=== PATIENT | female | born 1955 | race Caucasian/White ===

== ENCOUNTER 2017-04-19 18:26 | Emergency (ER) | payer SELFPAY ==
[~2017-04-19] VITALS: Ht 162.6 cm; Wt 102.3 kg
[2017-04-19 18:33] VITALS: Ht 162.6 cm; Wt 102.3 kg
[2017-04-19] MEDS ORDERED: ACETAMINOPHEN 325 MG TAB PO STA (18:43)
[2017-04-19] MEDS ORDERED: ALBUT/IPRATROP 3MG/0.5MG NEB 3 ML VIAL INH STA (18:43)
--- NOTE | 2017-04-19 18:49 | EMERGENCY ROOM VISIT NOTE ---
History Report prepared by Ruben: Casey Duque Under the Supervision of: Dr. Kenzie Mccloud M.D. First contact with patient: 18:41 Chief Complaint: FLU LIKE SX Stated Complaint: FLU History of Present Illness The patient is a 61 year old female who presents to the Emergency Room with complaints of persistent flu-like symptoms that started 2 to 3 weeks ago. She says that she has been trying to deal with her illness on her own, but she does not want to deal with it anymore. The patient states that her daughter had pneumonia recently. The patient says that she has been tired, with difficulty breathing. She adds that she has had an intermittently productive cough, and the left side of her abdomen hurts from coughing. The patient adds that she has had a pounding headache, in addition to intermittent fevers. She notes that she has been wheezing. The patient is a smoker, and has smoked up to a pack per day. She says that she has been taking Ibuprofen for her symptoms, but has not taken any medications today. Source of History: patient Onset: 2 to 3 weeks ago Position: other (global - flu-like symptoms) Quality: other (pt is a smoker) Timing: other (persistent) Associated Symptoms: + fevers, + headache, + cough, + SOB, + abdominal pain (left), + fatigue Note: Associated symptoms: Wheezing. Review of Systems See HPI for pertinent positives & negatives. A total of 10 systems reviewed and were otherwise negative. Past Medical & Surgical Surgical Problems: (1) Hx of appendectomy Family History Cancer Gallbladder disease Hypertension Kidney disease Social History Smoking Status: Current Every Day Smoker Marital Status: Housing Status: lives with family Occupation Status: unemployed Current/Historical Medications Scheduled Levofloxacin (Levaquin), 750 MG PO DAILY Prednisone (Prednisone), 10 MG PO DIRECTED Allergies Coded Allergies: Penicillins (Unverified Allergy, Unknown, UKN, 04/19/17) Sulfa Drugs (Unverified Allergy, Unknown, HIVES, 04/19/17) Physical Exam Vital Signs Date Time Temp Pulse Resp B/P (MAP) Pulse Ox O2 Delivery O2 Flow Rate FiO2 04/19/17 21:54 36.7 84 18 121/85 93 Room Air 04/19/17 21:00 37.3 94 18 104/86 90 Room Air 04/19/17 20:01 38.3 113 18 111/72 93 Room Air 04/19/17 19:11 113 04/19/17 18:33 37.3 116 20 137/81 94 Room Air Physical Exam Vital signs reviewed. General: Obese, chronically ill-appearing 61 year old female, in no significant distress. HEENT: No scleral icterus, PERRLA, neck supple. Atraumatic. Cardiovascular: Regular rate and rhythm, no extra sounds. Pulmonary: Wheezing to lower lung cormier bilaterally, some wheezing appreciated bilaterally. Abdomen: Soft, nontender, nondistended, positive bowel sounds. Musculoskeletal: Atraumatic, no peripheral edema. Neurologic: Patient awake alert and oriented x 3 Skin: Warm, dry, no rash Medical Decision & Procedures ER Provider Diagnostic Interpretation: X-ray results as stated below per interpretation by me and the radiologist: SINGLE VIEW CHEST CLINICAL HISTORY: Cough and fever. FINDINGS: An AP, portable, upright chest radiograph is compared to study dated 04/15/2010. The examination is degraded by portable technique and patient rotation. The cardiomediastinal silhouette is unremarkable noting uncoiling of the thoracic aorta. Chronic interstitial thickening is similar to previous. There is no airspace consolidation or large pleural effusion. No pneumothorax is seen. The skeletal structures are osteopenic. The bony thorax is grossly intact. Degenerative change is seen throughout the thoracic spine. IMPRESSION: No acute cardiopulmonary abnormality. Electronically signed by: Toni Owens M.D. 04/19/2017 7:15 PM Dictated Date/Time: 04/19/2017 7:14 PM Laboratory Results 04/19/17 19:11 Red Blood Count 4.36, Mean Corpuscular Volume 97.2, Mean Corpuscular Hemoglobin 33.5, Mean Corpuscular Hemoglobin Concent 34.4, Mean Platelet Volume 9.7, Neutrophils (%) (Auto) 76.3, Lymphocytes (%) (Auto) 11.7, Monocytes (%) (Auto) 11.2, Eosinophils (%) (Auto) 0.3, Basophils (%) (Auto) 0.2, Neutrophils # (Auto ) 11.59, Lymphocytes # (Auto) 1.77, Monocytes # (Auto) 1.70, Eosinophils # (Auto ) 0.04, Basophils # (Auto) 0.03 04/19/17 19:11 Test 04/19/17 19:11 04/19/17 19:21 White Blood Count 15.17 K/uL (4.8-10.8) Red Blood Count 4.36 M/uL (4.2-5.4) Hemoglobin 14.6 g/dL (12.0-16.0) Hematocrit 42.4 % (37-47) Mean Corpuscular Volume 97.2 fL (80-100) Mean Corpuscular Hemoglobin 33.5 pg (25-34) Mean Corpuscular Hemoglobin Concent 34.4 g/dl (32-36) Platelet Count 415 K/uL (130-400) Mean Platelet Volume 9.7 fL (7.4-10.4) Neutrophils (%) (Auto) 76.3 % Lymphocytes (%) (Auto) 11.7 % Monocytes (%) (Auto) 11.2 % Eosinophils (%) (Auto) 0.3 % Basophils (%) (Auto) 0.2 % Neutrophils # (Auto) 11.59 K/uL (1.4-6.5) Lymphocytes # (Auto) 1.77 K/uL (1.2-3.4) Monocytes # (Auto) 1.70 K/uL (0.11-0.59) Eosinophils # (Auto) 0.04 K/uL (0-0.5) Basophils # (Auto) 0.03 K/uL (0-0.2) RDW Standard Deviation 45.6 fL (36.4-46.3) RDW Coefficient of Variation 12.9 % (11.5-14.5) Immature Granulocyte % (Auto) 0.3 % Immature Granulocyte # (Auto) 0.04 K/uL (0.00-0.02) Anion Gap 8.0 mmol/L (3-11) Est Creatinine Clear Calc Drug Dose 59.3 ml/min Estimated GFR () 59.9 Estimated GFR (Non- 51.7 BUN/Creatinine Ratio 10.2 (10-20) Calcium Level 9.0 mg/dl (8.5-10.1) Total Bilirubin 0.6 mg/dl (0.2-1) Direct Bilirubin 0.1 mg/dl (0-0.2) Aspartate Amino Transf (AST/SGOT) 24 U/L (15-37) Alanine Aminotransferase (ALT/SGPT) 29 U/L (12-78) Alkaline Phosphatase 88 U/L (45-117) Total Protein 7.7 gm/dl (6.4-8.2) Albumin 3.2 gm/dl (3.4-5.0) Influenza Type A Antigen Neg for Influ A (NEG) Influenza Type B Antigen Neg for Influ B (NEG) Bedside Troponin I < 0.030 ng/ml (0-0.045) Laboratory results per my review. Medications Administered Medications (Trade) Dose Ordered Sig/Naty Route Start Time Stop Time Status Last Admin Dose Admin Albuterol/ Ipratropium (Duoneb) 3 ml NOW STAT INH 04/19/17 18:43 04/19/17 18:45 DC 04/19/17 19:11 3 ML Acetaminophen (Tylenol Tab) 650 mg NOW STAT PO 04/19/17 18:43 04/19/17 18:45 DC 04/19/17 19:11 650 MG Ondansetron HCl (Zofran Inj) 4 mg NOW STAT IV 04/19/17 20:47 04/19/17 20:48 DC 04/19/17 20:47 4 MG Levofloxacin (Levaquin Tab) 750 mg NOW STAT PO 04/19/17 21:31 04/19/17 21:34 DC 04/19/17 21:52 750 MG Prednisone (PredniSONE TAB) 40 mg NOW STAT PO 04/19/17 21:31 04/19/17 21:34 DC 04/19/17 21:52 40 MG Albuterol (Ventolin Hfa Inhaler) 2 puffs NOW STAT INH 04/19/17 21:31 04/19/17 21:34 DC 04/19/17 21:52 2 PUFFS ECG Per My Interpretation Indication: SOB/dyspnea Rate (beats per minute): 118 Rhythm: sinus tachycardia Findings: no acute ischemic change, no ectopy, other (Nonspecific ST change in the anterolateral leads, QTC 440) ED Course 1840: Past medical records reviewed. The patient was evaluated in room A3. A complete history and physical examination was performed. 1842: Ordered Tylenol Tab 650 mg PO, Duoneb 3 ml INH. 2046: Ordered Zofran Inj 4 mg IV. 2130: Ordered Ventolin Hfa Inhaler 2 puffs INH, Prednisone Tab 40 mg PO, Levaquin Tab 750 mg PO. 2154: Upon reevaluation, the patient appeared to be resting comfortably. I recommended follow-up with her primary care physician, and she stated that she does not have money or trust doctors. I discussed findings with her. She was discharged home. Medical Decision Differential diagnosis: Etiologies such as infections, reactive airway disease, pneumonia, pneumothorax , COPD, CHF, cardiac ischemia, pulmonary embolism, musculoskeletal, gastrointestinal, as well as others were entertained. This pt was evaluated and appeared to be in no distress. IV access was obtained and lab was drawn. A duoneb treatment was given and tylenol for fever. Influenza swab is negative. CXR is clear. Given fever and wheezing along with pt's h/o smoking, she is likely suffering a bronchitis/early PNA. Pt was medicated with Levaquin 750 mg po and d/c with 6 more days. Pt was also placed on a prednisone taper and given an albuterol inhaler. Pt was strongly encouraged to establish with PCP, however pt became agitated and replied that she doesn't trust doctors. She was encouraged to return to the ED for worsening of symptoms or any medical concerns. Medication Reconcilliation Current Medication List: was personally reviewed by me Blood Pressure Screening Patient's blood pressure: Normal blood pressure Impression Primary Impression: Bronchitis Additional Impressions: Fever Tobacco dependence Scribe Attestation The scribe's documentation has been prepared under my direction and personally reviewed by me in its entirety. I confirm that the note above accurately reflects all work, treatment, procedures, and medical decision making performed by me. Departure Information Dispostion Home / Self-Care Prescriptions Prednisone (Prednisone) 10 Mg Tab 10 MG PO DIRECTED, #31 TAB 40 mg daily for 4 days, 30 mg daily for 3 days, 20 mg daily for 2 days, 10 mg daily for 2 days Prov: Kenzie Mccloud M.D. 04/19/17 Levofloxacin (Levaquin) 750 Mg Tab 750 MG PO DAILY for 6 Days, #6 TAB Prov: Kenzie Mccloud M.D. 04/19/17 Referrals No Doctor, Assigned (PCP) Forms HOME CARE DOCUMENTATION FORM, IMPORTANT VISIT INFORMATION Patient Instructions My [facility] Additional Instructions Diagnosis: Fever, bronchitis, tobacco dependency Please stop smoking. Levaquin 750 mg daily for the next 6 days, start tomorrow. Prednisone 40 mg daily for 4 days, 30 mg daily for 3 days, 20 mg daily for 2 days, 10 mg daily for 2 days. Albuterol 2 puffs every 4 hours as needed for wheezing or cough. Tylenol 650 mg every 6 hours as needed for fever. Return to the emergency department for worsening of symptoms or any medical concerns. Problem Qualifiers
--- NOTE | 2017-04-19 19:17 | DIAGNOSTIC IMAGING REPORT ---
SINGLE VIEW CHEST CLINICAL HISTORY: Cough and fever. FINDINGS: An AP, portable, upright chest radiograph is compared to study dated 04/15/2010. The examination is degraded by portable technique and patient rotation. The cardiomediastinal silhouette is unremarkable noting uncoiling of the thoracic aorta. Chronic interstitial thickening is similar to previous. There is no airspace consolidation or large pleural effusion. No pneumothorax is seen. The skeletal structures are osteopenic. The bony thorax is grossly intact. Degenerative change is seen throughout the thoracic spine. IMPRESSION: No acute cardiopulmonary abnormality. Electronically signed by: Toni Owens M.D. 04/19/2017 7:15 PM Dictated Date/Time: 04/19/2017 7:14 PM
[2017-04-19 19:43] LABS: BASO % 0.2 %; BASO ABS # 0.03 K/uL (0-0.2); EOS % 0.3 %; EOS ABS # 0.04 K/uL (0-0.5); HEMATOCRIT 42.4 % (37-47); HEMOGLOBIN 14.6 g/dL (12.0-16.0); IG# 0.04 K/uL (0.00-0.02); LYMPH % 11.7 %; LYMPH ABS # 1.77 K/uL (1.2-3.4); MEAN CELL VOLUME 97.2 fL (80-100); MEAN CORPUSCULAR HEMOGLOBIN 33.5 pg (25-34); MEAN CORPUSCULAR HGB CONC 34.4 g/dl (32-36); MEAN PLATELET VOLUME 9.7 fL (7.4-10.4); MONO % 11.2 %; NEUT % 76.3 %; NEUT ABS # 11.59 K/uL (1.4-6.5); PLATELET COUNT 415 K/uL (130-400); RED CELL DISTRIBUTION WIDTH CV 12.9 % (11.5-14.5); RED CELL DISTRIBUTION WIDTH SD 45.6 fL (36.4-46.3); WHITE BLOOD COUNT 15.17 K/uL (4.8-10.8)
[2017-04-19 20:10] LABS: ALBUMIN 3.2 gm/dl (3.4-5.0); CREATININE 1.13 mg/dl (0.60-1.20); POTASSIUM 3.5 mmol/L (3.5-5.1)
[2017-04-19 20:13] LABS: TOTAL PROTEIN 7.7 gm/dl (6.4-8.2)
[2017-04-19 20:43] LABS: INFLUENZA B ANTIGEN Neg for Influ B (NEG)
[2017-04-19] MEDS ORDERED: ONDANSETRON INJ 2 MG/ML 2 ML VIAL IV STA (20:47)
[2017-04-19] MEDS ORDERED: LEVOFLOXACIN 750 MG TAB PO STA (21:31)
[2017-04-19] MEDS ORDERED: ALBUTEROL HFA 8 GM INHALER INH STA (21:31)
[2017-04-19 21:54] VITALS: BP 121/85; PULSE 84; TEMP 36.7; O2SAT 93
[2017-04-19] MEDS ORDERED: LEVO1TAB35 PO (22:28)
[2017-04-19] MEDS ORDERED: PRED10TA PO ×2 (22:28→22:29)
== END 2017-04-19 22:47 | disposition home or self-care (01) ==
LOC: C.EDB 18:28 → C.EDA 22:47
DX: J40 Bronchitis, not specified as acute or chronic (principal); F17.210 Nicotine dependence, cigarettes, uncomplicated; Z80.9 Family history of malignant neoplasm, unspecified; Z82.49 Family history of ischemic heart disease and other diseases of the circulatory system; Z84.1 Family history of disorders of kidney and ureter; Z88.0 Allergy status to penicillin; Z88.2 Allergy status to sulfonamides